=== PATIENT | female | born 1990 | race Caucasian/White ===

== ENCOUNTER 2019-09-08 08:02 | Observation (INO) | payer MEDICAID | END 2019-09-08 08:26 | disposition home or self-care (01) | DRG 861 | LOC: LDRP 08:02 | PROVIDERS: ADMIT Specialist; ATTEND Specialist | DX: Z03.818 Encounter for observation for suspected exposure to other biological agents ruled out (principal); O26.893 Other specified pregnancy related conditions, third trimester; Z3A.39 39 weeks gestation of pregnancy | CPT/HCPCS: 87635; G0378 ==

== ENCOUNTER 2019-09-11 08:15 | Inpatient (IN) | payer MEDICAID ==
[~2019-09-11] VITALS: Ht 157.5 cm; Wt 80.7 kg
[2019-09-11] VITALS (13 sets, daily range): BP systolic 96–114; BP diastolic 46–67
[2019-09-11 09:29] LABS: Basophils # (auto) 0 10 ^3/uL (0-0.2); Basophils % (auto) 0.3 % (0.0-2.0); Eosinophils # (auto) 0.1 10 ^3/uL (0-0.8); Eosinophils % (auto) 0.9 % (0.0-7.0); Hematocrit 34.3 % (36.0-46.0); Hemoglobin 11.4 g/dL (12.2-16.2); Lymphocytes # (auto) 1.5 10 ^3/uL (0.4-5.4); Lymphocytes % (auto) 20.4 % (10.0-50.0); Mean Corpuscular Hemoglobin 29.1 pg (28.0-32.0); Mean Corpuscular Hgb Conc. 33.2 g/dL (32.0-36.0); Mean Corpuscular Volume 87.6 fL (80.0-100.0); Monocytes # (auto) 0.7 10 ^3/uL (0-1.3); Neutrophils # (auto) 5.3 10 ^3/uL (1.6-8.6); Neutrophils % (auto) 69.4 % (37.0-80.0); Nucleated Red Blood Cells % 0.1 %; Platelet Count (auto) 162 10^3/uL (140-450); Red Blood Cells 3.92 10^6/uL (4.0-5.20); Red Cell Distribution Width 14.9 % (11.8-14.3); White Blood Cell 7.6 10^3/uL (4.4-10.8)
[2019-09-11 09:47] LABS: Urine Bacteria FEW /hpf (None Seen); Urine Blood TRACE /uL (Negative); Urine Specific Gravity 1.008 (1.001-1.035); Urine WBC 16 /hpf (0 - 5)
[2019-09-11] MEDS ORDERED: PREN-96 PO (09:47)
[2019-09-11 09:48] LABS: INR 0.96 (0.9-1.15); Partial Thromboplastin Time 27.1 sec (23.64-32.05)
[2019-09-11 09:51] LABS: Albumin 2.5 g/dL (3.4-5.0); Calcium 8.2 mg/dL (8.5-10.1); Potassium 3.9 mmol/L (3.5-5.1)
[2019-09-11 09:55] LABS: BUN/Creatinine Ratio 4.5; Bilirubin, Total 0.6 mg/dL (0.2-1.0); Total Protein 6.6 g/dL (6.4-8.2)
[2019-09-11] MEDS ORDERED: LACTATED RINGER'S 1,000 ML IV ONE (10:00)
[2019-09-11] MEDS: LACTATED RINGER'S 1,000 ML IV SCH ×2 (10:25→17:19)
[2019-09-11] MEDS ORDERED: MORPHINE SULF(PF) 0.5MG/ML 10ML VIAL ONE (10:52)
[2019-09-11] MEDS ORDERED: BUPIVACAINE 0.5% P/F INJ 10 ML VIAL ONE (10:52)
[2019-09-11] MEDS ORDERED: fentaNYL CITRATE 100 MCG/2 ML VL ONE (10:52)
[2019-09-11] MEDS ORDERED: oxyTOCIN 10 UNIT/ML 10ML VIAL ONE (10:52)
[2019-09-11] MEDS ORDERED: EPINEPHrine HCL 1 MG/1 ML AMP ONE (10:52)
[2019-09-11] MEDS ORDERED: SODIUM CHLORIDE LOCK 10 ML ONE (10:52)
[2019-09-11] MEDS ORDERED: MIDAZOLAM HCL 1MG/1ML-2 ML VIAL ONE (10:52)
[2019-09-11] MEDS ORDERED: ONDANSETRON HCL 4 MG/2 ML VIAL ONE (10:53)
[2019-09-11] MEDS ORDERED: TETRACAINE 1% INJ 2 ML VIAL IJ ONE (10:56)
[2019-09-11] MEDS ORDERED: CLINDAMYCIN 900MG IV 50 ML IV ONE (11:04)
[2019-09-11] MEDS ORDERED: MORPHINE SULFATE 4 MG/ML SYR/VIAL IV PRN (12:30)
[2019-09-11] MEDS ORDERED: NALOXONE HCL 0.4 MG/ML VIAL IV PRN (12:30)
[2019-09-11] MEDS ORDERED: ONDANSETRON HCL 4 MG/2 ML VIAL IV PRN (12:30)
[2019-09-11] MEDS ORDERED: fentaNYL CITRATE 100 MCG/2 ML VL IV PRN (12:30)
[2019-09-11] MEDS ORDERED: HYDROmorphone HCL 2 MG/ML VL IV PRN ×2 (12:30)
[2019-09-11] MEDS ORDERED: LACTATED RINGER'S 1,000 ML IV SCH (12:30)
[2019-09-11] MEDS ORDERED: METOCLOPRAMIDE HCL 5MG/ml INJ 2ml VIAL IV PRN (12:30)
[2019-09-11] MEDS ORDERED: diphenhdrAMINE HCL 50 MG/1 ML VL IV PRN (12:30)
[2019-09-11] MEDS ORDERED: ACETAMINOPHEN IV 1000 MG/100ML (10MG/ML) IV ONE (12:45)
[2019-09-11] MEDS ORDERED: CLINDAMYCIN 900MG IV 50 ML IV SCH (14:00)
[2019-09-11] MEDS: CLINDAMYCIN 900MG IV 50 ML IV SCH (20:16)
[2019-09-11] MEDS: KETOROLAC TROMETH 30 MG/ML 1ML VIAL IV PRN (22:56)
[2019-09-12 02:30] VITALS: BP 90/51
[2019-09-12] MEDS: CLINDAMYCIN 900MG IV 50 ML IV SCH ×2 (03:57→11:41)
[2019-09-12 04:06] LABS: RPR Non Reactive (Non Reactive)
[2019-09-12 06:49] LABS: Basophils # (auto) 0 10 ^3/uL (0-0.2); Basophils % (auto) 0.3 % (0.0-2.0); Eosinophils # (auto) 0 10 ^3/uL (0-0.8); Eosinophils % (auto) 0.6 % (0.0-7.0); Hematocrit 31.2 % (36.0-46.0); Hemoglobin 10.6 g/dL (12.2-16.2); Lymphocytes % (auto) 14.7 % (10.0-50.0); Mean Corpuscular Hemoglobin 29.9 pg (28.0-32.0); Mean Corpuscular Volume 87.8 fL (80.0-100.0); Monocytes # (auto) 0.5 10 ^3/uL (0-1.3); Monocytes % (auto) 7.8 % (0.0-12.0); Neutrophils # (auto) 5.2 10 ^3/uL (1.6-8.6); Neutrophils % (auto) 76.6 % (37.0-80.0); Nucleated Red Blood Cells % 0.1 %; Platelet Count (auto) 138 10^3/uL (140-450); Red Blood Cells 3.56 10^6/uL (4.0-5.20); Red Cell Distribution Width 14.8 % (11.8-14.3); White Blood Cell 6.9 10^3/uL (4.4-10.8)
[2019-09-12 06:50] VITALS: BP 99/59
[2019-09-12] MEDS: KETOROLAC TROMETH 30 MG/ML 1ML VIAL IV PRN (11:06)
[2019-09-12 11:15] VITALS: BP 88/60
[2019-09-12] MEDS ORDERED: SIMETHICONE 80 MG CHEWABLE TABLET PO PRN (12:30)
[2019-09-12] MEDS ORDERED: HYDROcodone-ACET 5/325MG TAB PO PRN (12:30)
[2019-09-12 15:15] VITALS: BP 100/56
[2019-09-12] MEDS: HYDROcodone-ACET 5/325MG TAB PO PRN (17:27)
[2019-09-12 18:50] VITALS: BP 104/62
[2019-09-12] MEDS: IBUPROFEN 800 MG TAB PO PRN (19:01)
[2019-09-12] MEDS: DOCUSATE SOD 100 MG CAP PO SCH (21:51)
[2019-09-12 22:59] VITALS: BP 85/47
[2019-09-13] MEDS: HYDROcodone-ACET 5/325MG TAB PO PRN ×4 (01:19→20:47)
[2019-09-13 02:50] VITALS: BP 109/72
[2019-09-13] MEDS: IBUPROFEN 800 MG TAB PO PRN ×2 (04:48→16:41)
[2019-09-13 07:00] VITALS: BP 96/58
[2019-09-13] MEDS: DOCUSATE SOD 100 MG CAP PO SCH (09:33)
[2019-09-13 11:30] VITALS: BP 113/64
[2019-09-13 15:30] VITALS: BP 109/73
[2019-09-13 19:00] VITALS: BP 116/67
== END 2019-09-13 22:30 | disposition home or self-care (01) | DRG 540 ==
LOC: OBSVTOIN 08:15 → LDRP 08:15
PROVIDERS: ADMIT Specialist; ATTEND Specialist
PROC: 10D00Z1 Extraction of Products of Conception, Low, Open Approach (ICD-10-PCS; principal; 2019-09-11 11:06)
DX: O34.211 Maternal care for low transverse scar from previous cesarean delivery (principal); Z37.0 Single live birth; Z3A.39 39 weeks gestation of pregnancy
CPT/HCPCS: 36415; 51702; 59025; 80053; 81001; 81002; 84112; 85025; 85610; 85730; 86592; 86850; 86900; 86901; 94760; 96365; 96366; 96374; G0378; J0131; J0171; J1885; J2250; J2405; J2590; J3490